=== PATIENT | male | born 1960 | race Caucasian/White ===

== ENCOUNTER 2020-09-17 08:09 | Emergency (ER) | payer BC ==
[~2020-09-17] VITALS: Ht 182.9 cm; Wt 96.0 kg
--- NOTE | 2020-09-17 08:41 | NUR ---
PT SITTING UP, NO DISTRESS, VSS, ROOM AIR,
--- NOTE | 2020-09-17 09:30 | NUR ---
PT SITTING UP ON GURNEY, NO ACUTE DISTRESS NOTED. NO IV TO DC. REVIEWED DC INSTRUCTIONS WITH PT, UNDERSTANDING VERBALIZED.
[2020-09-17 09:33] VITALS: BP 148/93
== END 2020-09-17 09:46 | disposition home or self-care (01) ==
LOC: ED 09:38
DX: B34.9 Viral infection, unspecified (principal); Z20.828 Contact with and (suspected) exposure to other viral communicable diseases
CPT/HCPCS: 87635; 99283